=== PATIENT | female | born 2000 | race Hispanic/Latino ===

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

== ENCOUNTER 2025-04-11 13:25 | Emergency (ER) | payer BC, MEDICAID ==
[~2025-04-11] VITALS: Ht 157.5 cm; Wt 108.9 kg
[~2025-04-11 13:25] MED LIST: GENT5DRO8 OP
[2025-04-11 13:44] VITALS: BP 131/82; PULSE 66; RESP 20; TEMP 98.8
[2025-04-11 14:12] LABS: IMMATURE GRANULOCYTE ABSOLUTE 0.04 K/uL (0-1); NUCLEATED RED BLOOD CELLS 0.0 % (0.0-0.19); PLATELET COUNT (AUTO) 287 K/uL (130-400); RED BLOOD CELL COUNT(AUTO) 5.10 MIL/uL (4.00-5.50); RED CELL DISTRIBUTION WIDTH 14.5 % (11.0-15.5); WHITE BLOOD COUNT (AUTO) 9.3 K/uL (4.8-10.8)
[2025-04-11] MEDS ORDERED: FAMOTIDINE 20MG VIAL IV STA (14:14)
[2025-04-11] MEDS ORDERED: 0.9%NACL 1000ML 1,000 ML IV STA (14:14)
[2025-04-11 14:19] LABS: APPEARANCE,URINE CLEAR (CLEAR); GLUCOSE, URINE (UA) NEGATIVE (NEGATIVE); LEUKOCYTE ESTERASE ,URINE NEGATIVE Leu/uL (NEGATIVE); NITRATE,URINE NEGATIVE (NEGATIVE); OCCULT BLOOD,URINE NEGATIVE (NEGATIVE)
[2025-04-11 14:21] LABS: ADD UA MICROSCOPIC YES
[2025-04-11 14:25] LABS: CREATININE 0.6 mg/dL (0.5-1.0); GLOMERULAR FILTR. RATE CALC 130.0 mL/min (>90); GLUCOSE,RANDOM 94.0 mg/dL (70-105); SODIUM SERUM 139.0 mmol/L (136-145); UREA NITROGEN, BLOOD 8.0 mg/dL (7-18)
[2025-04-11 14:30] LABS: SQUAMOUS EPITHELIAL CELL,UR RARE /HPF (0-2)
[2025-04-11 14:44] LABS: ASPARTATE AMINOTRANSFERASE 21.0 U/L (10-37); TOTAL PROTEIN, SERUM 8.4 g/dL (6.0-8.3)
[2025-04-11 15:01] LABS: HCG,QUANTITATIVE 0.0 mIU/mL (0-5)
--- NOTE | 2025-04-11 15:03 | ERN ---
ED Note History of Present Illness Stated Complaint: ABDOMINAL PAIN Chief Complaint: Abdominal Pain Time Seen by MD: 13:26 Time Seen by Midlevel: 13:28 Dictation: 24-year-old female coming in with complaints of gastritis pain. Patient states he does not recall eating anything that might have aggravated her pain. Patient states she does have a history of gastritis. Denies any fever, nausea vomiting or diarrhea. Allergies: Uncoded Allergies: STEROIDS (Allergy, Unknown, 07/15/21) Home Meds Active Scripts Gentamicin Sulfate (Gentak) 5 Ml Drops, 2 DROP OP TID for 5 Days, #1 BOTTLE Prov:MY ROSARIO SIGNING TEACHER 07/15/21 Past Medical History Past Medical History: No Pertinent History Additional Past Medical Hx: THYROID PROBLEMS Surgical History: None Family History: Negative Social History: Negative, Lives with family LMP: Mar 28, 2025 Review of System Dictation Constitutional: Negative for fever,chills, and weight loss Eyes: Negative for injury, pain,redness, and discharge ENT: Negative for injury,pain or swelling Cardiovascular: Negative for chest pain, palpitations, and edema Respiratory: Negative for shortness of breath, cough, and wheezing, Abdomen/GI: Complaining of epigastric pain Back: Negative for injury and pain : Negative for injury, bleeding and discharge MS/Extremity: Negative for injury and deformity Skin: Negative for rash, and discoloration Neuro: Negative for headache, weakness, numbness, tingling, and seizure Psych: Negative for suicide ideation, homicidal ideation, and hallucinations Review of Systems: was completed Initial Vital Sign VS Vital Signs Date Time Temp Pulse Resp B/P (MAP) Pulse Ox O2 Delivery O2 Flow Rate FiO2 04/11/25 13:44 98.8 66 20 131/82 99 0 Physical Exam Dictation General: awake, alert, NAD Head/Face: Normocephalic, atraumatic Eyes: PERRL, EOMI, vision at baseline ENT: oral cavity clear, TMs clear, no signs of infection Neck: Trachea midline, supple, no nuchal rigidity Cardiovascular: RRR, normal S1/S2, No MRGs, no JVD Respiratory: CTAB, no respiratory distress, No rales or wheezes Abdomen: Soft, non-tender, non-distended, normal bowel sounds, no guarding or rebound. Skin: Warm, dry, normal turgor, no rash MS/Extremity: Pulses equal, no cyanosis, neurovascular intact, FROM Neuro: COAx4, GCS 15, strength 5/5, CN 2-12 intact, normal cerebellar exam, normal gait, Psych: Normal behavior, mood, and affect normal Results (Laboratory/Radiology) Laboratory/Radiology Laboratory Tests Test 04/11/25 14:05 04/11/25 14:06 White Blood Count 9.3 K/uL (4.8-10.8) Red Blood Count 5.10 MIL/uL (4.00-5.50) Hemoglobin 13.3 g/dL (12.0-16.0) Hematocrit 41.2 % (36-48) Mean Corpuscular Volume 80.8 fL (79-99) Mean Corpuscular Hemoglobin 26.1 pg (27.0-33.0) L Mean Corpuscular Hemoglobin Concent 32.3 g/dL (32.0-36.0) Red Cell Distribution Width 14.5 % (11.0-15.5) Platelet Count 287 K/uL (130-400) Mean Platelet Volume 9.1 fL (7.5-10.5) Immature Granulocyte % (Auto) 0.4 % (0-1) Neutrophils (%) (Auto) 73.1 % (40.0-77.0) Lymphocytes (%) (Auto) 18.0 % (21.0-51.0) L Monocytes (%) (Auto) 4.8 % (3.0-13.0) Eosinophils (%) (Auto) 3.2 % (0.0-8.0) Basophils (%) (Auto) 0.5 % (0.0-5.0) Neutrophils # (Auto) 6.8 K/uL (1.8-7.7) Lymphocytes # (Auto) 1.7 K/uL (1.0-4.8) Monocytes # (Auto) 0.5 K/uL (0.1-1.0) Eosinophils # (Auto) 0.30 K/uL (0.00-0.70) Basophils # (Auto) 0.05 K/uL (0.00-0.20) Absolute Immature Granulocyte (auto 0.04 K/uL (0-1) Nucleated Red Blood Cells 0.0 % (0.0-0.19) Sodium Level 139 mmol/L (136-145) Potassium Level 4.1 mmol/L (3.5-5.1) Chloride Level 102 mmol/L (101-111) Carbon Dioxide Level 29 mmol/L (21-32) Blood Urea Nitrogen 8 mg/dL (7-18) Creatinine 0.6 mg/dL (0.5-1.0) Glomerular Filtration Rate Calc 130 mL/min (>90) Random Glucose 94 mg/dL (70-105) Total Calcium 9.2 mg/dL (8.5-10.1) Total Bilirubin 0.4 mg/dL (0.2-1.0) Direct Bilirubin 0.1 mg/dL (0.0-0.3) Aspartate Amino Transf (AST/SGOT) 21 U/L (10-37) Alanine Aminotransferase (ALT/SGPT) 34 U/L (12-78) Alkaline Phosphatase 71 U/L (50-136) Total Protein 8.4 g/dL (6.0-8.3) H Albumin 3.8 g/dL (3.5-5.0) Lipase 32 U/L (16-77) Human Chorionic Gonadotropin, Quant 0 mIU/mL (0-5) Urine Color LIGHT-YELLOW (YELLOW) Urine Appearance CLEAR (CLEAR) Urine pH 7.0 (5.0-8.0) Urine Specific [place] 1.010 (1.001-1.031) Urine Protein NEGATIVE mg/dL (NEGATIVE) Urine Glucose (UA) NEGATIVE mg/dL (NEGATIVE) Urine Ketones NEGATIVE mg/dL (NEGATIVE) Urine Occult Blood NEGATIVE (NEGATIVE) Urine Nitrate NEGATIVE (NEGATIVE) Urine Bilirubin NEGATIVE mg/dL (NEGATIVE) Urine Urobilinogen 0.2 mg/dL (0.2-1.0) Urine Leukocyte Esterase NEGATIVE [place]/uL Urine RBC 2-5 /HPF (0-1) H Urine WBC 0-1 /HPF (0-1) Urine Squamous Epithelial Cells RARE /HPF (0-2) Urine Bacteria None /HPF (None Seen) Labs Reviewed?: Yes ED Course ED Course Orders Procedure Category Date Status Time Vital Signs Per CPOE 04/11/25 Transmitted Routine 13:47 Saline Lock Iv CPOE 04/11/25 Transmitted 13:47 Cbc With Differential LAB 04/11/25 Complete 13:47 Lipase LAB 04/11/25 Complete 13:47 Urinalysis Profile LAB 04/11/25 Complete 13:47 Basic Metabolic Panel LAB 04/11/25 Complete 13:47 Hepatic Function Panel LAB 04/11/25 Complete 14:13 Hcg,Quantitative LAB 04/11/25 Complete 14:13 0.9%Nacl 1000ml (Ns PHA 04/11/25 In Process 1000ml) 14:14 Ondansetron 4mg Inj PHA 04/11/25 Complete (Zofran 4mg Inj) 14:14 Famotidine 20mg Vial PHA 04/11/25 Complete (Pepcid 20mg Vial) 14:14 Current Medications Medications (Trade) Dose Ordered Sig/Sim Route PRN Reason Start Time Stop Time Status Last Admin Dose Admin Famotidine (Pepcid 20mg Vial) 20 mg ONCE STAT IV 04/11/25 14:14 04/11/25 14:18 DC Ondansetron HCl (zoFRAN 4MG INJ) 4 mg ONCE STAT IVP 04/11/25 14:14 04/11/25 14:18 DC Sodium Chloride 1,000 ml @ 100 mls/hr Q10H STAT IV 04/11/25 14:14 04/12/25 00:13 Vital Signs Date Time Temp Pulse Resp B/P (MAP) Pulse Ox O2 Delivery O2 Flow Rate FiO2 04/11/25 13:44 98.8 66 20 131/82 99 0 Medical Decision Making MDM MDM: 24-year-old female coming in with complaints of gastritis pain. Patient states he does not recall eating anything that might have aggravated her pain. Patient states she does have a history of gastritis. Denies any fever, nausea vomiting or diarrhea. All blood work is unremarkable. Educated patient she needs to follow up outpatient with her PCP and or with the legal support assistant for further evaluation. She might have PUD or H pylori were needs to be evaluated further. Differential diagnosis: PUD, gastritis, GERD Rationale: Tests considered and ordered secondary to shared decision making include: Previous outside records reviewed: Old ER visits. Risk of complication and/or morbidity or mortality of patient management: None Medications-Per medication reconciliation Need for hospitalization: Patient does not meet criteria for hospitalization. Need for emergency major/minor surgery: No There are no social concerns with this patient. Prescription drug management Prescriptions will include symptomatic care Patient's prior external medical records from other ER visits were reviewed by me as indicated. Prior testing and results from previous visits were reviewed. Prior tests were taken into account with medical decision making and resource utilization, independent historian/historians were used to obtain complete medical history. I independently interpreted the test that were performed, results were reviewed by me and considered findings on radiology if ordered. Medical management and examination interpretation discussions were had by me with other qualified healthcare professionals as indicated for the patient's care. DX & DISP Disposition: Discharge Departure Impression: Primary Impression: Abdominal pain Condition: Stable Scripts Pantoprazole Sodium (Protonix) 40 Mg Ectab 1 TAB PO DAILY for 30 Days, #30 TAB 0 Refills Prov: JOSEPHINE SMITH SIGNING TEACHER 04/11/25 Additional Instructions: Do not eat any fried, spicy, greasy foods. Follow up with your PCP and or with the legal support assistant for further evaluation. Referrals: H[facility] ROTH (PCP) DAIANA MARTINS MD Time of Disposition: 16:14 I have reviewed the case, and I agree with, Diagnosis and Plan JOSEPHINE SMITH NP Apr 11, 2025 15:03
[2025-04-11] MEDS ORDERED: PANT40TA55 PO (16:16)
== END 2025-04-11 16:21 | disposition home or self-care (01) ==
LOC: EDH 13:25
DX: R10.9 Unspecified abdominal pain (principal); R10.2 Pelvic and perineal pain; Z79.899 Other long term (current) drug therapy
CPT/HCPCS: 36415; 80048; 80076; 81001; 83690; 84702; 85025; 99283